=== PATIENT | female | born 1940 | race Caucasian/White ===

== ENCOUNTER → 2018-05-09 14:36 | Outpatient (CLI) | payer OTHER, SELFPAY | PROVIDERS: Visit Provider Internal Medicine | DX: M81.0 Age-related osteoporosis without current pathological fracture (principal); Z78.0 Asymptomatic menopausal state; Z82.62 Family history of osteoporosis | CPT/HCPCS: 77080 ==

== ENCOUNTER → 2020-08-02 19:24 | Outpatient (ROUT) | payer MEDICARE, SELFPAY ==
[2020-08-02 19:56] LABS: Aspartate Aminotransferase 28 IU/L (14-36); BUN Creatinine Ratio 27.7 (6-22); Blood Urea Nitrogen 23 mg/dL (7-17); Calcium 9.4 mg/dL (8.4-10.2); Carbon Dioxide 31 mmol/L (22-32); Chloride 105 mmol/L (98-107); Cholesterol 214 mg/dL (140-199); Estimated Glomerular Filt Rate > 60.0 mL/min (>60); Glucose 77 mg/dL (80-110); HDL Cholesterol 81 mg/dL (40-60); HEMOLYSIS < 15 (0-50); LDL Cholesterol Calculated 116 mg/dL (<100); Potassium 3.9 mmol/L (3.4-5.1); Sodium 139 mmol/L (137-145); Triglycerides 85 mg/dL (35-150)
== END ==
PROVIDERS: Visit Provider Internal Medicine
DX: E78.2 Mixed hyperlipidemia (principal)
CPT/HCPCS: 80048; 80061; 84450

== ENCOUNTER → 2020-11-13 12:52 | Outpatient (CLI) | payer OTHER, SELFPAY ==
--- NOTE | 2020-11-13 12:58 | DI.RAD.S_ITS ---
PROCEDURE: XR LUMBAR SPINE 2-3V INDICATIONS: LOW BACK PAIN TECHNIQUE: 3 views of the lumbar spine were acquired. COMPARISON: None. FINDINGS: Bones: 5 [id number] vertebrae are present. Moderate dextro curvature centered at L2. No vertebral body compression fractures. No suspicious bony lesions. Lower lumbar facet arthropathy. Soft tissues: Overlying bowel gas pattern is normal. No suspicious soft tissue calcifications. Calcified uterine fibroid. IMPRESSION: 1. Moderate dextroscoliotic curvature. 2. Lower lumbar facet arthropathy. 3. No evidence acute bony abnormality of the lumbar spine. If clinical suspicion and/or symptoms persist, further assessment with repeat plain films, or advanced imaging (e.g., CT, MRI, or bone scan) may be helpful for further assessment. Dictated by: Venkata Zurita M.D. on 11/13/2020 at 14:14 Approved by: Venkata Zurita M.D. on 11/13/2020 at 14:15
--- NOTE | 2020-11-13 12:58 | DI.RAD.S_ITS ---
PROCEDURE: XR THORACIC SPINE 2V INDICATIONS: LOW BACK PAIN TECHNIQUE: 2 views of the thoracic spine were acquired. COMPARISON: [facility], CR, XR LUMBAR SPINE 2-3V, 11/13/2020, 12:57. FINDINGS: Bones: S shaped thoracolumbar scoliotic curvature. Age-indeterminate T7 compression, moderate. No suspicious bony lesions. 12 pairs of ribs are noted, and appear intact where visualized. Soft tissues: No paravertebral stripe thickening. IMPRESSION: 1. S shaped thoracolumbar scoliotic curvature. 2. Age-indeterminate T7 compression. Comment: If clinically suspect a painful acute compression fracture, consider thoracic spine MRI. Dictated by: Venkata Zurita M.D. on 11/13/2020 at 14:15 Approved by: Venkata Zurita M.D. on 11/13/2020 at 14:17
== END ==
PROVIDERS: Referring Provider Internal Medicine; Visit Provider Internal Medicine
DX: M54.5 Low back pain (principal); M47.816 Spondylosis without myelopathy or radiculopathy, lumbar region; M41.85 Other forms of scoliosis, thoracolumbar region
CPT/HCPCS: 72070; 72100

== ENCOUNTER → 2021-04-14 13:09 | Outpatient (CLI) | payer OTHER, SELFPAY ==
[2021-04-14 14:26] LABS: COVID19 -Nasal RAPID Negative (Negative)
--- NOTE | 2021-04-20 11:12 | PM.PFT.1 ---
Pulmonary Function Test Referral & Results Date Patient Seen: 04/14/21 Requesting provider: Anderson Medina Results: The spirometry demonstrates an FVC of 1.57 L which is 65% of predicted. The FEV1 was measured at 1.03 L which is 58% of predicted. The FEV1/FVC ratio was 65 which is 88% of predicted. Following the administration of bronchodilator there was a 34% improvement in FEF 25-75%. Lung volumes show an SVC of 1.83 L which is 74% of predicted. The diffusing capacity was measured at 17.61 which is 81% of predicted. The maximum voluntary ventilation was severely reduced Interpretation: This study demonstrates perhaps mild obstructive lung disease based on reduction FEV1 although FEV1/FVC ratio is preserved. There is also a minimal improvement in small airway flow after bronchodilator based on improvement in FEF 25-75% as above There is also mild restrictive lung disease present based on reduction in SVC which may explain abnormalities in FEV1 Diffusing capacity maybe minimally reduced
== END ==
PROVIDERS: PCP Internal Medicine; Referring Provider Internal Medicine; Visit Provider Internal Medicine
DX: J45.20 Mild intermittent asthma, uncomplicated (principal); Z20.822 Contact with and (suspected) exposure to COVID-19
CPT/HCPCS: 87635; 94060; 94729; C9803

== ENCOUNTER → 2021-04-28 15:59 | Outpatient (CLI) | payer OTHER, SELFPAY ==
--- NOTE | 2021-04-28 16:24 | DI.RAD.S_ITS ---
PROCEDURE: XR CHEST 2V INDICATIONS: SOB TECHNIQUE: 2 views of the chest were acquired. COMPARISON: [facility], CR, XR THORACIC SPINE 2V, 11/13/2020, 12:57. FINDINGS: Surgical changes and devices: None. Lungs and pleura: Hyperlucent, mildly hyperinflated upper lungs accentuated by thoracic kyphosis. Slight coarsening of the interstitial markings diffusely, but no dense consolidations. Mediastinum: Mediastinal contours are normal. Heart size is at the upper limits of normal. This is accentuated by slight scoliosis. No significant central venous congestion. Bones and chest wall: There is a severe midthoracic compression fracture resulting in thoracic kyphosis. Reverse S thoracolumbar scoliosis is also present. IMPRESSION: 1. Mildly coarse interstitial markings diffusely may indicate chronic senescent changes versus mild interstitial pneumonitis. Correlate clinically. 2. No significant central venous congestion. 3. Severe midthoracic compression fracture, slightly progressed compared to the prior study from 11/13/20. If there is continued back pain, consider vertebroplasty. Dictated by: Lupe Marinelli M.D. on 04/28/2021 at 18:25 Approved by: Lupe Marinelli M.D. on 04/28/2021 at 18:28
== END ==
PROVIDERS: PCP Internal Medicine; Referring Provider Internal Medicine; Visit Provider Internal Medicine
DX: J45.20 Mild intermittent asthma, uncomplicated (principal); R06.02 Shortness of breath; M48.54XA Collapsed vertebra, not elsewhere classified, thoracic region, initial encounter for fracture
CPT/HCPCS: 71046

== ENCOUNTER → 2022-09-21 11:40 | Outpatient (CLI) | payer OTHER, SELFPAY | PROVIDERS: PCP Internal Medicine; Referring Provider Internal Medicine; Visit Provider Internal Medicine | DX: M81.0 Age-related osteoporosis without current pathological fracture (principal); Z78.0 Asymptomatic menopausal state | CPT/HCPCS: 77080 ==